=== PATIENT | male | born 1985 | race Caucasian/White ===

== ENCOUNTER 2020-04-21 20:23 | Inpatient (IN) | payer OTHER ==
[~2020-04-21] VITALS: Ht 177.8 cm; Wt 79.0 kg
[2020-04-21] MEDS ORDERED: ANTIDEPRESSANT PO (20:39)
[2020-04-21] MEDS ORDERED: LISINOPRIL PO (20:39)
--- NOTE | 2020-04-21 21:05 | NUR ---
assumed care of pt. pt here for HTN and anxiety. pt is A&O x4, calm and cooperative. pt reports that he has a hx of HTN and states that he is complaint with his meds. pt denies CP and SOB. no N/V Dr Howell at bedside for eval pt reports that he is a daily drinker and ususally has 2-3 glasses of wine per day. reports that his last drink was 3 days ago. pt reports that he has withdrawn from ETOH before no sz type activity noted. pt warm and dry no family at bedside
--- NOTE | 2020-04-21 21:20 | NUR ---
pt medicated per order. pt advised not to drive after ativan. pt verbalized understanding
[2020-04-21] MEDS ORDERED: LORazepam 2 MG/ML, 1ML ONE ×2 (21:22→22:26)
[2020-04-21] MEDS ORDERED: SODIUM CHLORIDE FLUSH 10ML SYR IVF ONE (21:30)
[2020-04-21] MEDS ORDERED: SODIUM CHLORIDE 0.9% 1,000ML IVBOLUS ONE (21:30)
[2020-04-21] MEDS ORDERED: THIAMINE 100MG TABLET PO ONE (21:30)
[2020-04-21] MEDS ORDERED: LORazepam 2 MG/ML, 1ML IVPush PRN (21:30)
[2020-04-21] MEDS ORDERED: LORazepam 2 MG/ML, 1ML IVPush ONE (21:30)
[2020-04-21 21:31] LABS: BASOPHILS % (AUTO) 0 % (0-1); EOSINOPHILS % (AUTO) 0 % (1-7); LYMPHOCYTES % (AUTO) 23 % (22-44); MEAN CORPUSCULAR HEMOGLOBIN 31.7 pg (27.5-34.5); MEAN PLATELET VOLUME 7.7 fL (7.4-10.4); MONOCYTES % (AUTO) 6 % (2-9); NEUTROPHILS % (AUTO) 70 % (42-75); PLATELET COUNT 295 x10^3/uL (130-400); RED BLOOD COUNT 5.12 x10^6/uL (4.38-5.82); RED CELL DISTRIBUTION WIDTH 12.8 % (9.4-14.8)
[2020-04-21 21:33] LABS: MD NO
[2020-04-21 21:40] LABS: ALANINE AMINOTRANSFERASE 156 U/L (12-78); ALBUMIN 4.5 g/dL (3.4-5.0); ANION GAP 12 mmol/L (5-15); CHLORIDE 102 mmol/L (98-107); CREATININE 1.05 mg/dL (0.7-1.3)
[2020-04-21 21:43] LABS: ALKALINE PHOSPHATASE 62 U/L (45-117); BILIRUBIN,TOTAL 0.4 mg/dL (0.2-1.0); TOTAL PROTEIN 8.1 g/dL (6.4-8.2)
--- NOTE | 2020-04-21 22:07 | NUR ---
pt sitting up on [email or web address] TV. IV infusing. no new c/o. report to Anabella PATEL
--- NOTE | 2020-04-21 22:25 | NUR ---
ERP WAS IN FOR RECHECK. PT STILL SHAKY. WILL MEDICATE WITH ATIVAN AGAIN.
[2020-04-21] MEDS ORDERED: THIAMINE 100MG TABLET ONE (23:01)
--- NOTE | 2020-04-21 23:21 | NUR ---
PT RESTING IN GURNEY, AWAKENS EASILY. STATES HE'S FEELING BETTER. SNACKS & WATER PROVIDED.
[2020-04-21] MEDS ORDERED: MAGNESIUM SULFATE 1 GM, THIAMINE 100 MG, FOLIC ACID 1 MG, MVI ADULT 10 ML in SODIUM CHL... IV ONE (23:30)
[2020-04-22 00:31] VITALS: BP 123/75
[2020-04-22] MEDS ORDERED: CHLORDIAZEPOXIDE 10 MG CAPSULE PO PRN (04:00)
[2020-04-22] MEDS ORDERED: DIPHENHYDRAMINE 50 MG CAPSULE PO PRN (04:00)
[2020-04-22] MEDS ORDERED: CHLORDIAZEPOXIDE 25 MG CAPSULE PO PRN ×3 (04:00)
[2020-04-22] MEDS ORDERED: THIAMINE 200 MG in DEXTROSE 5% 50 ML IVPB ONE (04:00)
[2020-04-22] MEDS: ENOXAPARIN 40 MG/0.4 ML SQ SCH (04:00)
[2020-04-22] MEDS ORDERED: CHLORDIAZEPOXIDE 10 MG CAPSULE PO SCH (04:00)
[2020-04-22] MEDS ORDERED: LORazepam 2 MG/ML, 1ML IV PRN ×6 (04:00)
[2020-04-22] MEDS ORDERED: LABETALOL 5MG/ML, 20ML IV PRN (04:00)
[2020-04-22] MEDS ORDERED: LORazepam 1MG TABLET PO PRN ×4 (04:00)
[2020-04-22] MEDS ORDERED: PROMETHAZINE 25MG TABLET PO PRN (04:00)
[2020-04-22] MEDS ORDERED: CHLORDIAZEPOXIDE 25 MG CAPSULE PO SCH ×3 (04:00)
[2020-04-22] MEDS ORDERED: POTASSIUM CHLORIDE 10 MEQ, MVI ADULT 10 ML, FOLIC ACID 1 MG, MAGNESIUM SULFATE 1 GM in ... IV SCH ×2 (04:00→17:00)
[2020-04-22] MEDS ORDERED: ONDANSETRON 2MG/ML, 2ML IV PRN (04:00)
[2020-04-22] MEDS ORDERED: FOLIC ACID 1 MG TABLET PO ONE (04:00)
[2020-04-22] MEDS: CHLORDIAZEPOXIDE 25 MG CAPSULE PO SCH ×4 (06:01→23:32)
[2020-04-22 06:28] LABS: BASOPHILS % (AUTO) 1 % (0-1); EOSINOPHILS % (AUTO) 2 % (1-7); LYMPHOCYTES % (AUTO) 39 % (22-44); MEAN CORPUSCULAR HEMOGLOBIN 31.9 pg (27.5-34.5); MEAN PLATELET VOLUME 7.5 fL (7.4-10.4); MONOCYTES % (AUTO) 14 % (2-9); NEUTROPHILS % (AUTO) 44 % (42-75); PLATELET COUNT 225 x10^3/uL (130-400); RED BLOOD COUNT 4.71 x10^6/uL (4.38-5.82)
[2020-04-22 06:32] LABS: MD NO
[2020-04-22 06:43] LABS: CHLORIDE 105 mmol/L (98-107)
[2020-04-22 06:51] VITALS: BP 129/82
[2020-04-22 06:57] LABS: ALANINE AMINOTRANSFERASE 112 U/L (12-78); ALBUMIN 3.7 g/dL (3.4-5.0); ALKALINE PHOSPHATASE 56 U/L (45-117); ANION GAP 5 mmol/L (5-15); BILIRUBIN,TOTAL 0.6 mg/dL (0.2-1.0); CALCIUM 8.7 mg/dL (8.5-10.1); CREATININE 0.89 mg/dL (0.7-1.3); TOTAL PROTEIN 6.8 g/dL (6.4-8.2)
[2020-04-22] MEDS: MAGNESIUM CHLORIDE 64 MG TABLET.DR PO SCH ×3 (08:21→20:53)
[2020-04-22] MEDS: MULTIVITAMINS/MINERALS TABLET PO SCH (08:21)
[2020-04-22] MEDS: LORazepam 0.5MG TABLET PO PRN ×2 (08:21→15:33)
[2020-04-22] MEDS: ACETAMINOPHEN 325 MG TABLET PO PRN ×2 (08:21→15:33)
[2020-04-22] MEDS ORDERED: LISI1TAB39 PO (09:37)
[2020-04-22 12:04] VITALS: BP 136/83
[2020-04-22 18:47] VITALS: BP 108/67
[2020-04-23 01:17] VITALS: BP 107/71
[2020-04-23] MEDS: CHLORDIAZEPOXIDE 10 MG CAPSULE PO SCH ×4 (05:28→23:11)
[2020-04-23] MEDS: ENOXAPARIN 40 MG/0.4 ML SQ SCH (05:28)
[2020-04-23] MEDS: POTASSIUM CHLORIDE 10 MEQ, MVI ADULT 10 ML, FOLIC ACID 1 MG, MAGNESIUM SULFATE 1 GM in ... IV SCH (05:55)
[2020-04-23 07:20] VITALS: BP 115/68
[2020-04-23] MEDS: MAGNESIUM CHLORIDE 64 MG TABLET.DR PO SCH ×3 (08:07→21:05)
[2020-04-23] MEDS: MULTIVITAMINS/MINERALS TABLET PO SCH (08:07)
[2020-04-23 13:42] VITALS: BP 150/89
[2020-04-23 19:00] VITALS: BP 142/86
[2020-04-23] MEDS: ACETAMINOPHEN 325 MG TABLET PO PRN (21:13)
[2020-04-24 02:00] VITALS: BP 138/83
[2020-04-24] MEDS: CHLORDIAZEPOXIDE 10 MG CAPSULE PO SCH (06:17)
[2020-04-24] MEDS: ENOXAPARIN 40 MG/0.4 ML SQ SCH (06:17)
[2020-04-24] MEDS: POTASSIUM CHLORIDE 10 MEQ, MVI ADULT 10 ML, FOLIC ACID 1 MG, MAGNESIUM SULFATE 1 GM in ... IV SCH (06:17)
[2020-04-24 08:10] VITALS: BP 110/64
[2020-04-24] MEDS: MAGNESIUM CHLORIDE 64 MG TABLET.DR PO SCH (09:20)
[2020-04-24] MEDS: MULTIVITAMINS/MINERALS TABLET PO SCH (09:20)
[2020-04-24] MEDS ORDERED: FLU VACC QS2020-21(6MOS UP)/PF 60MCG/0.5 ML SYR IM ONE (10:30)
[2020-04-25] MEDS ORDERED: CHLORDIAZEPOXIDE 25 MG CAPSULE PO SCH (05:30)
== END 2020-04-24 11:26 | disposition home or self-care (01) | DRG 309 ==
LOC: ED 21:45 → EDIP 04-22 01:01 → 4WST 04-22 01:35 → DCLOUNGE 04-24 11:14
PROVIDERS: ADMIT Internal Medicine; ATTEND Hospitalist
DX: R00.0 Tachycardia, unspecified (principal); F10.239 Alcohol dependence with withdrawal, unspecified; E86.0 Dehydration; F12.90 Cannabis use, unspecified, uncomplicated; F32.9 Major depressive disorder, single episode, unspecified; F41.9 Anxiety disorder, unspecified; I10 Essential (primary) hypertension; K76.0 Fatty (change of) liver, not elsewhere classified; Z87.891 Personal history of nicotine dependence; Z72.89 Other problems related to lifestyle
CPT/HCPCS: 36415; 96360; 99285; J7042; 76700; 80053; 80307; 85025; 86704; 86706; 86708; 86803; 87340; 90686; 93005; G0378; J1650; J3411; J3475; J3480; J2060; J7030